=== PATIENT | male | born 1990 | race Caucasian/White ===

== ENCOUNTER 2018-01-21 04:21 | Emergency (ER) | payer OTHER ==
[~2018-01-21] VITALS: Ht 185.4 cm; Wt 90.7 kg
[2018-01-21 04:33] VITALS: BP 103/80
[2018-01-21] MEDS ORDERED: IBUPROFEN 800800 MG PO (05:58)
[2018-01-21] MEDS ORDERED: PENICILLIN V P500 MG PO (05:58)
[2018-01-21] MEDS ORDERED: HYDROCODON-ACE1 EAC7 PO (05:58)
[2018-01-21] MEDS ORDERED: PERIDEX 0.12%473 M1 PO (06:07)
== END 2018-01-21 06:12 | disposition home or self-care (01) ==
LOC: M.ERS 04:21
DX: S02.5XXA Fracture of tooth (traumatic), initial encounter for closed fracture (principal); S01.511A Laceration without foreign body of lip, initial encounter; F17.210 Nicotine dependence, cigarettes, uncomplicated; Y04.0XXA Assault by unarmed brawl or fight, initial encounter; Y93.89 Activity, other specified; Y92.89 Other specified places as the place of occurrence of the external cause; Y99.8 Other external cause status